=== PATIENT | female | born 1980 | race Caucasian/White ===

== ENCOUNTER → 2020-10-02 11:20 | Outpatient (CLI) | payer BC, SELFPAY ==
--- NOTE | ~2020-10-02 | US_ITS ---
EXAMINATION: US transvaginal EXAM DATE: 10/02/2020 11:40 INDICATION: Right-sided pelvic pain. TECHNIQUE: Pelvic transvaginal sonogram was performed. There are multiple grayscale and Doppler imag es available for interpretation. There is no prior study for comparison. FINDINGS: Uterus measures 7.5 x 4.2 x 4.0 cm, and is morphologically normal. Endometrial stripe margaret sures 5 mm, within normal limits. There are nabothian cysts. There is no free pelvic fluid. Right adnexa: The ovary measures 2.2 x 1.0 x 1.6 cm and is morphologically normal. Ovarian vascular f low confirmed. Left adnexa: The ovary measures 1.4 x 1.6 x 1.4 cm and is morphologically normal. Ovarian vascular fl ow confirmed. IMPRESSION: 1. Unremarkable pelvic ultrasound exam. Reviewed, dictated and finalized at location A.
== END ==
PROVIDERS: Visit Provider Obstetrics & Gynecology
DX: R10.2 Pelvic and perineal pain (principal)
CPT/HCPCS: 76830